=== PATIENT | male | born 1960 | race Caucasian/White ===

== ENCOUNTER 2017-07-24 01:06 | Inpatient (IN) | payer MEDICARE, MEDICAID ==
[~2017-07-24] VITALS: Ht 172.7 cm; Wt 94.7 kg
[2017-07-24] MEDS ORDERED: MORPHINE SULFATE 4 MG/ML, 1ML ONE ×3 (01:51→04:31)
[2017-07-24] MEDS ORDERED: ONDANSETRON 2MG/ML, 2ML ONE (01:51)
[2017-07-24] MEDS ORDERED: ONDANSETRON 2MG/ML, 2ML IVPush ONE (02:00)
[2017-07-24] MEDS: MORPHINE SULFATE 4 MG/ML, 1ML IVPush PRN ×2 (02:03→03:12)
[2017-07-24 02:17] LABS: BASOPHILS # (AUTO) 0.06 x10^3/uL (0-0.1); BASOPHILS % (AUTO) 1 % (0-1); EOSINOPHILS # (AUTO) 0.06 x10^3/uL (0-0.4); EOSINOPHILS % (AUTO) 1 % (1-7); LYMPHOCYTES # (AUTO) 1.11 x10^3/uL (1-3.4); LYMPHOCYTES % (AUTO) 11 % (22-44); MD NO; MEAN CORPUSCULAR HEMOGLOBIN 31.4 pg (27.5-34.5); MEAN CORPUSCULAR HGB CONC 33.8 g/dL (33.2-36.2); MEAN CORPUSCULAR VOLUME 92.7 fL (81-97); MEAN PLATELET VOLUME 7.5 fL (7.4-10.4); MONOCYTES # (AUTO) 0.44 x10^3/uL (0.2-0.8); MONOCYTES % (AUTO) 4 % (2-9); NEUTROPHILS # (AUTO) 8.74 x10^3/uL (1.8-6.8); NEUTROPHILS % (AUTO) 84 % (42-75); PLATELET COUNT 344 x10^3/uL (130-400); RED BLOOD COUNT 4.59 x10^6/uL (4.38-5.82); RED CELL DISTRIBUTION WIDTH 15.2 % (9.4-14.8)
[2017-07-24 02:29] LABS: ALANINE AMINOTRANSFERASE 29 U/L (12-78); ALBUMIN 3.6 g/dL (3.4-5.0); ANION GAP 6 mmol/L (5-15); CALCIUM 8.4 mg/dL (8.5-10.1); CHLORIDE 107 mmol/L (98-107); CREATININE 1.52 mg/dL (0.7-1.3)
[2017-07-24 02:31] LABS: ALKALINE PHOSPHATASE 107 U/L (45-117); BILIRUBIN,TOTAL 0.3 mg/dL (0.2-1.0); TOTAL PROTEIN 7.8 g/dL (6.4-8.2)
[2017-07-24 04:00] LABS: INTERNATIONAL NORMALIZED RATIO 1.01 (0.93-1.1); PROTHROMBIN TIME 10.5 Seconds (9.6-11.5)
[2017-07-24] MEDS ORDERED: SODIUM CHLORIDE 0.9% 1,000ML IVBOLUS ONE (04:00)
[2017-07-24] MEDS ORDERED: SODIUM CHLORIDE FLUSH 10ML SYR IVF ONE (04:00)
[2017-07-24 04:06] LABS: MICROSCOPIC NOT IND
[2017-07-24 04:47] LABS: CULTURE INDICATED? NO
[2017-07-24] MEDS ORDERED: LIDOCAINE 1%, 20ML ONE (05:33)
[2017-07-24] MEDS ORDERED: FLUMAZENIL 0.1 MG/1 ML, 5ML ONE (05:38)
[2017-07-24] MEDS ORDERED: NALOXONE 1 MG/ML, 2ML ONE (05:38)
[2017-07-24] MEDS ORDERED: MIDAZOLAM 1 MG/ML, 5ML ONE ×2 (05:38)
[2017-07-24] MEDS ORDERED: FENTANYL PF 100 MCG/2ML ONE (05:38)
[2017-07-24] MEDS ORDERED: MORPHINE SULFATE 4 MG/ML, 1ML IVPush PRN (06:00)
[2017-07-24] MEDS ORDERED: OMNIPAQUE 350 MG/ML, 100ML BOTTLE ONE (06:16)
[2017-07-24] MEDS ORDERED: THROMBIN 5,000 UNIT VIAL TP ONE ×2 (06:22→06:25)
[2017-07-24] MEDS ORDERED: ACETAMINOPHEN 325 MG TABLET PO PRN (06:30)
[2017-07-24] MEDS ORDERED: POLYETHYLENE GLYCOL 17 GM PACKET PO PRN (06:30)
[2017-07-24] MEDS ORDERED: D5%-0.9% NACL+KCL 20MEQ 1,000 ML IV SCH (06:30)
[2017-07-24] MEDS ORDERED: BISACODYL 10 MG SUPP PR PRN (06:30)
[2017-07-24] MEDS ORDERED: ONDANSETRON 2MG/ML, 2ML IVPush PRN (06:30)
[2017-07-24] MEDS ORDERED: DOCUSATE 100 MG CAPSULE PO PRN (06:30)
[2017-07-24 07:49] VITALS: BP 149/102
[2017-07-24 07:52] LABS: HEMOGLOBIN A1C 5.6 % (4.2-6.3)
[2017-07-24 07:57] LABS: FREE T4 (FREE THYROXINE) 1.14 ng/dL (0.76-1.46); THYROID STIMULATING HORMONE 0.589 mIU/L (0.358-3.740)
[2017-07-24] MEDS: SODIUM CHLORIDE 0.9% 1,000 ML IV SCH ×2 (08:30→20:30)
[2017-07-24] MEDS: NICOTINE 14MG/24 HR PATCH.TD24 TD SCH (08:32)
[2017-07-24] MEDS: OXYcodone IR 5MG TABLET PO PRN ×3 (08:33→20:41)
[2017-07-24 13:42] VITALS: BP 145/89
[2017-07-24] MEDS ORDERED: ASPI-515 PO (18:17)
[2017-07-24 19:16] VITALS: BP 203/125
[2017-07-24] MEDS: hydrALAzine 20 MG/ML, 1ML IVPush PRN (20:35)
[2017-07-24 21:00] VITALS: BP 164/102
[2017-07-24 23:51] LABS: MICROSCOPIC NOT IND
[2017-07-24 23:54] LABS: CULTURE INDICATED? NO
[2017-07-25] VITALS (9 sets, daily range): BP systolic 153–207; BP diastolic 95–124
[2017-07-25] MEDS: OXYcodone IR 5MG TABLET PO PRN ×5 (02:31→23:46)
[2017-07-25] MEDS: SODIUM CHLORIDE 0.9% 1,000 ML IV SCH ×2 (05:00→11:32)
[2017-07-25 06:05] LABS: BASOPHILS # (AUTO) 0.02 x10^3/uL (0-0.1); BASOPHILS % (AUTO) 0 % (0-1); EOSINOPHILS % (AUTO) 0 % (1-7); LYMPHOCYTES # (AUTO) 0.92 x10^3/uL (1-3.4); LYMPHOCYTES % (AUTO) 10 % (22-44); MD NO; MEAN CORPUSCULAR HEMOGLOBIN 31.1 pg (27.5-34.5); MEAN CORPUSCULAR HGB CONC 33.8 g/dL (33.2-36.2); MEAN PLATELET VOLUME 7.4 fL (7.4-10.4); MONOCYTES # (AUTO) 0.54 x10^3/uL (0.2-0.8); MONOCYTES % (AUTO) 6 % (2-9); NEUTROPHILS % (AUTO) 84 % (42-75); PLATELET COUNT 269 x10^3/uL (130-400); RED BLOOD COUNT 4.04 x10^6/uL (4.38-5.82); RED CELL DISTRIBUTION WIDTH 15.5 % (9.4-14.8)
[2017-07-25 06:18] LABS: ALBUMIN 3.5 g/dL (3.4-5.0); ANION GAP 7 mmol/L (5-15); CHLORIDE 106 mmol/L (98-107)
[2017-07-25 06:23] LABS: ALANINE AMINOTRANSFERASE 225 U/L (12-78); ALKALINE PHOSPHATASE 156 U/L (45-117); BILIRUBIN,TOTAL 3.9 mg/dL (0.2-1.0); CHOL/HDL RATIO 3.6; CHOLESTEROL, TOTAL 141 mg/dL (140-239); CREATININE 0.85 mg/dL (0.7-1.3); HDL CHOL % 28 % (26-37); HDL CHOLESTEROL (DIRECT) 39 mg/dL (40-60); LDL CHOLESTEROL,CALCULATED 86 mg/dL (54-169); LDL/HDL RATIO 2.2 (0.5-3.0); TOTAL PROTEIN 7.4 g/dL (6.4-8.2); TRIGLYCERIDES 78 mg/dL (50-200); VLDL CHOLESTEROL 16 mg/dL (0-25)
[2017-07-25] MEDS: LABETALOL 5MG/ML, 20ML IVPush PRN ×4 (08:08→23:45)
[2017-07-25] MEDS: NICOTINE 14MG/24 HR PATCH.TD24 TD SCH (08:09)
[2017-07-25] MEDS: hydrALAzine 20 MG/ML, 1ML IVPush PRN (10:27)
[2017-07-25] MEDS: CEFTRIAXONE 2 GM in DEXTROSE 5% 50 ML IV SCH (13:30)
[2017-07-25] MEDS ORDERED: FUROSEMIDE 20 MG/2 ML IV ONE (13:30)
[2017-07-25] MEDS: LOSARTAN 50MG TABLET PO SCH (13:30)
[2017-07-25] MEDS: METRONIDAZOLE PMX 500MG/100ML 100 ML IV SCH ×2 (14:10→20:52)
[2017-07-26] VITALS (7 sets, daily range): BP systolic 148–195; BP diastolic 89–115
[2017-07-26] MEDS: LABETALOL 5MG/ML, 20ML IVPush PRN ×3 (02:35→17:05)
[2017-07-26] MEDS: OXYcodone IR 5MG TABLET PO PRN ×5 (04:09→21:05)
[2017-07-26] MEDS: hydrALAzine 20 MG/ML, 1ML IVPush PRN (04:15)
[2017-07-26] MEDS: METRONIDAZOLE PMX 500MG/100ML 100 ML IV SCH ×3 (05:08→21:05)
[2017-07-26 05:10] LABS: BASOPHILS % (AUTO) 0 % (0-1); EOSINOPHILS % (AUTO) 0 % (1-7); LYMPHOCYTES # (AUTO) 0.87 x10^3/uL (1-3.4); LYMPHOCYTES % (AUTO) 10 % (22-44); MD NO; MEAN CORPUSCULAR HEMOGLOBIN 31.3 pg (27.5-34.5); MEAN CORPUSCULAR HGB CONC 33.8 g/dL (33.2-36.2); MEAN CORPUSCULAR VOLUME 92.8 fL (81-97); MEAN PLATELET VOLUME 7.7 fL (7.4-10.4); MONOCYTES % (AUTO) 9 % (2-9); NEUTROPHILS # (AUTO) 7.02 x10^3/uL (1.8-6.8); NEUTROPHILS % (AUTO) 81 % (42-75); PLATELET COUNT 247 x10^3/uL (130-400); RED BLOOD COUNT 3.79 x10^6/uL (4.38-5.82); RED CELL DISTRIBUTION WIDTH 15.6 % (9.4-14.8)
[2017-07-26 05:12] LABS: CHLORIDE 102 mmol/L (98-107)
[2017-07-26 05:29] LABS: ALANINE AMINOTRANSFERASE 220 U/L (12-78); ALBUMIN 3.2 g/dL (3.4-5.0); ALKALINE PHOSPHATASE 171 U/L (45-117); ANION GAP 8 mmol/L (5-15); BILIRUBIN,TOTAL 4.8 mg/dL (0.2-1.0); TOTAL PROTEIN 7.2 g/dL (6.4-8.2)
[2017-07-26] MEDS: NICOTINE 14MG/24 HR PATCH.TD24 TD SCH (08:02)
[2017-07-26] MEDS: LOSARTAN 50MG TABLET PO SCH (08:02)
[2017-07-26] MEDS: CEFTRIAXONE 2 GM in DEXTROSE 5% 50 ML IV SCH (13:30)
[2017-07-27] MEDS: OXYcodone IR 5MG TABLET PO PRN ×6 (00:59→21:39)
[2017-07-27 02:00] VITALS: BP 148/84
[2017-07-27] MEDS: METRONIDAZOLE PMX 500MG/100ML 100 ML IV SCH ×3 (04:46→20:45)
[2017-07-27 05:36] LABS: BASOPHILS # (AUTO) 0.01 x10^3/uL (0-0.1); BASOPHILS % (AUTO) 0 % (0-1); EOSINOPHILS % (AUTO) 0 % (1-7); LYMPHOCYTES % (AUTO) 11 % (22-44); MD NO; MEAN CORPUSCULAR HEMOGLOBIN 31.3 pg (27.5-34.5); MEAN CORPUSCULAR HGB CONC 33.9 g/dL (33.2-36.2); MEAN CORPUSCULAR VOLUME 92.4 fL (81-97); MEAN PLATELET VOLUME 7.9 fL (7.4-10.4); MONOCYTES # (AUTO) 0.85 x10^3/uL (0.2-0.8); MONOCYTES % (AUTO) 11 % (2-9); NEUTROPHILS # (AUTO) 6.31 x10^3/uL (1.8-6.8); NEUTROPHILS % (AUTO) 78 % (42-75); PLATELET COUNT 220 x10^3/uL (130-400); RED BLOOD COUNT 3.61 x10^6/uL (4.38-5.82); RED CELL DISTRIBUTION WIDTH 16.1 % (9.4-14.8)
[2017-07-27 05:37] LABS: ALBUMIN 2.9 g/dL (3.4-5.0); ANION GAP 8 mmol/L (5-15); CALCIUM 7.8 mg/dL (8.5-10.1); CHLORIDE 100 mmol/L (98-107)
[2017-07-27 05:49] LABS: ALANINE AMINOTRANSFERASE 229 U/L (12-78); ALKALINE PHOSPHATASE 173 U/L (45-117); BILIRUBIN,TOTAL 4.7 mg/dL (0.2-1.0); CREATININE 0.83 mg/dL (0.7-1.3); TOTAL PROTEIN 6.5 g/dL (6.4-8.2)
[2017-07-27 08:23] VITALS: BP 167/95
[2017-07-27] MEDS: NICOTINE 14MG/24 HR PATCH.TD24 TD SCH (08:37)
[2017-07-27] MEDS: LOSARTAN 50MG TABLET PO SCH (08:37)
[2017-07-27] MEDS ORDERED: POTASSIUM PHOSPHATE 22 MEQ in SODIUM CHLORIDE 0.9% 500 ML IV ONE (10:30)
[2017-07-27] MEDS: CEFTRIAXONE 2 GM in DEXTROSE 5% 50 ML IV SCH (13:57)
[2017-07-27 14:02] VITALS: BP 183/106
[2017-07-27] MEDS: LABETALOL 5MG/ML, 20ML IVPush PRN (14:24)
[2017-07-27 15:40] VITALS: BP 163/99
[2017-07-27 20:30] VITALS: BP 125/83
[2017-07-28] MEDS: OXYcodone IR 5MG TABLET PO PRN ×2 (01:40→22:21)
[2017-07-28 02:06] VITALS: BP 176/110
[2017-07-28] MEDS: LABETALOL 5MG/ML, 20ML IVPush PRN ×2 (02:12→19:22)
[2017-07-28] MEDS: METRONIDAZOLE PMX 500MG/100ML 100 ML IV SCH ×3 (04:43→21:49)
[2017-07-28 05:04] LABS: BASOPHILS % (AUTO) 0 % (0-1); EOSINOPHILS % (AUTO) 0 % (1-7); LYMPHOCYTES # (AUTO) 0.74 x10^3/uL (1-3.4); LYMPHOCYTES % (AUTO) 10 % (22-44); MD NO; MEAN CORPUSCULAR HEMOGLOBIN 31.6 pg (27.5-34.5); MEAN CORPUSCULAR HGB CONC 34.2 g/dL (33.2-36.2); MEAN CORPUSCULAR VOLUME 92.2 fL (81-97); MONOCYTES # (AUTO) 1.13 x10^3/uL (0.2-0.8); MONOCYTES % (AUTO) 15 % (2-9); NEUTROPHILS # (AUTO) 5.82 x10^3/uL (1.8-6.8); NEUTROPHILS % (AUTO) 76 % (42-75); PLATELET COUNT 216 x10^3/uL (130-400); RED BLOOD COUNT 3.62 x10^6/uL (4.38-5.82); RED CELL DISTRIBUTION WIDTH 15.4 % (9.4-14.8)
[2017-07-28 05:15] LABS: ALBUMIN 2.7 g/dL (3.4-5.0); ANION GAP 9 mmol/L (5-15); CALCIUM 7.6 mg/dL (8.5-10.1); CHLORIDE 99 mmol/L (98-107)
[2017-07-28 05:19] LABS: ALANINE AMINOTRANSFERASE 179 U/L (12-78); ALKALINE PHOSPHATASE 179 U/L (45-117); BILIRUBIN,TOTAL 4.9 mg/dL (0.2-1.0); CREATININE 0.84 mg/dL (0.7-1.3); TOTAL PROTEIN 6.5 g/dL (6.4-8.2)
[2017-07-28] MEDS: morphine SULFATE 10 MG/ML, 1ML IVPush PRN ×3 (07:14→13:50)
[2017-07-28 07:19] VITALS: BP 164/99
[2017-07-28] MEDS: LOSARTAN 50MG TABLET PO SCH (08:26)
[2017-07-28] MEDS: NICOTINE 14MG/24 HR PATCH.TD24 TD SCH (08:26)
[2017-07-28] MEDS ORDERED: SUCCINYLCHOLINE 20 MG/ML, 10ML ONE (10:29)
[2017-07-28] MEDS ORDERED: ONDANSETRON 2MG/ML, 2ML ONE (10:29)
[2017-07-28] MEDS ORDERED: DEXAMETHASONE 4 MG/ML, 1ML ONE (10:29)
[2017-07-28] MEDS ORDERED: PROPOFOL 10 MG/ML, 20ML ONE (10:29)
[2017-07-28] MEDS ORDERED: ROCURONIUM 10 MG/ML,10ML ONE (10:29)
[2017-07-28] MEDS ORDERED: GLUCAGON 1 MG ONE (10:30)
[2017-07-28] MEDS ORDERED: POTASSIUM PHOS 4.4 MEQ/ML IV ONE (10:30)
[2017-07-28] MEDS ORDERED: POTASSIUM PHOSPHATE 22 MEQ in SODIUM CHLORIDE 0.9% 500 ML IV ONE (11:00)
[2017-07-28 13:32] VITALS: BP 172/112
[2017-07-28] MEDS: hydrALAzine 20 MG/ML, 1ML IVPush PRN (13:41)
[2017-07-28] MEDS: CEFTRIAXONE 2 GM in DEXTROSE 5% 50 ML IV SCH (14:17)
[2017-07-28] MEDS ORDERED: FENTANYL PF 100 MCG/2ML ONE (16:13)
[2017-07-28] MEDS ORDERED: MIDAZOLAM 1 MG/ML, 2ML ONE (16:13)
[2017-07-28] MEDS ORDERED: OMNIPAQUE 350 MG/ML, 50 ML BOTTLE ONE (17:27)
[2017-07-28] MEDS ORDERED: ONDANSETRON 2MG/ML, 2ML IVPush PRN (17:30)
[2017-07-28] MEDS ORDERED: HYDROcodone/APAP 7.5-325MG/15ML UDC PO PRN (17:30)
[2017-07-28] MEDS ORDERED: hydrALAzine 20 MG/ML, 1ML IV PRN (17:30)
[2017-07-28] MEDS ORDERED: METOPROLOL 1 MG/ML, 5ML IV PRN (17:30)
[2017-07-28] MEDS ORDERED: DIAZEPAM 5 MG/ML, 2ML IVPush PRN (17:30)
[2017-07-28] MEDS ORDERED: LABETALOL 5MG/ML, 20ML IV PRN (17:30)
[2017-07-28] MEDS ORDERED: PROMETHAZINE 25 MG/ML, 1ML IV PRN (17:30)
[2017-07-28] MEDS ORDERED: MEPERIDINE/PF 25MG/0.5ML IVPush PRN (17:30)
[2017-07-28] MEDS ORDERED: EPHEDRINE 50 MG/ML, 1ML IVPush PRN (17:30)
[2017-07-28] MEDS ORDERED: ACETAMINOPHEN 325 MG TABLET PO PRN (17:30)
[2017-07-28] MEDS ORDERED: morphine SULFATE 10 MG/ML, 1ML IV PRN (17:30)
[2017-07-28] MEDS ORDERED: FENTANYL PF 100 MCG/2ML IV PRN (17:30)
[2017-07-28] MEDS ORDERED: OXYcodone 5 MG/5 ML ORAL.SOL UDC PO PRN (17:30)
[2017-07-28] MEDS ORDERED: PROMETHAZINE 12.5 MG SUPP PR PRN (17:30)
[2017-07-28] MEDS ORDERED: ALBUTEROL SULFATE 2.5 MG/3 ML NPPB PRN (17:30)
[2017-07-28] MEDS ORDERED: MIDAZOLAM 1 MG/ML, 2ML IV PRN (17:30)
[2017-07-28] MEDS ORDERED: INDOMETHACIN 50 MG SUPP.RECT ONE (17:31)
[2017-07-28] MEDS ORDERED: INDOMETHACIN 50 MG SUPP.RECT PR ONE (18:00)
[2017-07-28 18:10] VITALS: BP 140/75
[2017-07-28 19:10] VITALS: BP 149/102
[2017-07-28 23:30] VITALS: BP 120/46
[2017-07-29] MEDS: OXYcodone IR 5MG TABLET PO PRN ×3 (02:22→10:43)
[2017-07-29] MEDS ORDERED: FLU VACC QS2017-18 (36MOS+) UP/PF 0.5 ML IM-VACC ONE (02:30)
[2017-07-29 03:25] VITALS: BP 124/84
[2017-07-29] MEDS: METRONIDAZOLE PMX 500MG/100ML 100 ML IV SCH ×2 (05:22→12:46)
[2017-07-29 05:50] LABS: ALBUMIN 2.6 g/dL (3.4-5.0); ANION GAP 5 mmol/L (5-15); CHLORIDE 102 mmol/L (98-107)
[2017-07-29 05:53] LABS: ALANINE AMINOTRANSFERASE 135 U/L (12-78); ALKALINE PHOSPHATASE 173 U/L (45-117); BILIRUBIN,TOTAL 1.9 mg/dL (0.2-1.0); CREATININE 0.83 mg/dL (0.7-1.3); TOTAL PROTEIN 6.6 g/dL (6.4-8.2)
[2017-07-29 08:17] VITALS: BP 146/84
[2017-07-29] MEDS: LOSARTAN 50MG TABLET PO SCH (08:53)
[2017-07-29] MEDS: NICOTINE 14MG/24 HR PATCH.TD24 TD SCH (08:54)
[2017-07-29] MEDS ORDERED: LOSA50TA2 PO (10:22)
[2017-07-29] MEDS ORDERED: METR500T PO (10:22)
[2017-07-29] MEDS ORDERED: CEFD300C37 PO (10:22)
== END 2017-07-29 14:15 | disposition home or self-care (01) | DRG 444 ==
LOC: ED 02:01 → EDIP 06:21 → 4NOR 07:36 → DCLOUNGE 07-29 13:37
PROVIDERS: ADMIT Internal Medicine; ATTEND Family Medicine
PROC: BF101ZZ Fluoroscopy of Bile Ducts using Low Osmolar Contrast (ICD-10-PCS; 2017-07-28)
PROC: 3E023GC Introduction of Other Therapeutic Substance into Muscle, Percutaneous Approach (ICD-10-PCS; 2017-07-28)
PROC: 0FC98ZZ Extirpation of Matter from Common Bile Duct, Via Natural or Artificial Opening Endoscopic (ICD-10-PCS; principal; 2017-07-28 15:00)
DX: K80.50 Calculus of bile duct without cholangitis or cholecystitis without obstruction (principal); N17.0 Acute kidney failure with tubular necrosis; J96.00 Acute respiratory failure, unspecified whether with hypoxia or hypercapnia; D62 Acute posthemorrhagic anemia; E87.1 Hypo-osmolality and hyponatremia; S30.1XXA Contusion of abdominal wall, initial encounter; R58 Hemorrhage, not elsewhere classified; D72.823 Leukemoid reaction; F17.210 Nicotine dependence, cigarettes, uncomplicated; I10 Essential (primary) hypertension; K57.10 Diverticulosis of small intestine without perforation or abscess without bleeding; M79.81 Nontraumatic hematoma of soft tissue; M21.372 Foot drop, left foot; Z90.49 Acquired absence of other specified parts of digestive tract; Z88.0 Allergy status to penicillin; Z23 Encounter for immunization
CPT/HCPCS: 36415; 74177; 74181; 74328; 76942; 80053; 80061; 81003; 83036; 83690; 83735; 84100; 84439; 84443; 85014; 85018; 85025; 85610; 85730; 86677; 86850; 86900; 87040; 90686; 96361; 96374; 96375; 96376; J1100; J2250; J2405; J2704; J3010; J3490; Q9967; C1769; J0330; J0360; J1610; J1940; J2270; J2310; J7030; J7040

== ENCOUNTER 2018-03-07 20:46 | Emergency (ER) | payer MEDICAID, MEDICARE, OTHER ==
[~2018-03-07] VITALS: Ht 177.8 cm; Wt 101.0 kg
[~2018-03-07 20:46] MED LIST: ASPI-515 PO; CEFD300C37 PO; LOSA50TA2 PO; METR500T PO
[2018-03-08 03:00] VITALS: BP 139/79
== END 2018-03-08 03:56 | disposition home or self-care (01) ==
LOC: ED 22:51
DX: F10.120 Alcohol abuse with intoxication, uncomplicated (principal); I10 Essential (primary) hypertension; F17.200 Nicotine dependence, unspecified, uncomplicated
CPT/HCPCS: 99283

== ENCOUNTER 2019-08-23 01:35 | Emergency (ER) | payer MEDICARE ==
[~2019-08-23] VITALS: Ht 172.7 cm; Wt 72.0 kg
--- NOTE | 2019-08-23 02:02 | NUR ---
PT UP WALKING IN ROOM, CALL LIGHT WITHIN REACH, DENIES NEEDS AT THIS TIME. AWAITING LAB RESULTS
[2019-08-23 02:11] LABS: BASOPHILS # (AUTO) 0.03 x10^3/uL (0-0.1); BASOPHILS % (AUTO) 0 % (0-1); EOSINOPHILS # (AUTO) 0.16 x10^3/uL (0-0.4); EOSINOPHILS % (AUTO) 2 % (1-7); LYMPHOCYTES # (AUTO) 1.18 x10^3/uL (1-3.4); LYMPHOCYTES % (AUTO) 15 % (22-44); MD NO; MEAN CORPUSCULAR HEMOGLOBIN 30.8 pg (27.5-34.5); MEAN CORPUSCULAR VOLUME 93.4 fL (81-97); MEAN PLATELET VOLUME 7.1 fL (7.4-10.4); MONOCYTES # (AUTO) 0.68 x10^3/uL (0.2-0.8); MONOCYTES % (AUTO) 9 % (2-9); NEUTROPHILS # (AUTO) 5.88 x10^3/uL (1.8-6.8); NEUTROPHILS % (AUTO) 74 % (42-75); PLATELET COUNT 304 x10^3/uL (130-400); RED BLOOD COUNT 4.66 x10^6/uL (4.38-5.82); RED CELL DISTRIBUTION WIDTH 16.1 % (9.4-14.8)
[2019-08-23 02:18] LABS: ALANINE AMINOTRANSFERASE 67 U/L (12-78); ALBUMIN 3.7 g/dL (3.4-5.0); ANION GAP 3 mmol/L (5-15); CALCIUM 8.8 mg/dL (8.5-10.1); CHLORIDE 105 mmol/L (98-107); CREATININE 0.91 mg/dL (0.7-1.3)
[2019-08-23 02:20] LABS: ALKALINE PHOSPHATASE 103 U/L (45-117); BILIRUBIN,TOTAL 0.4 mg/dL (0.2-1.0)
[2019-08-23 02:22] VITALS: BP 117/104
--- NOTE | 2019-08-23 02:23 | NUR ---
pt sitting up on gurney, denies needs, call lightt within reach. awaiting lab results
--- NOTE | 2019-08-23 02:42 | NUR ---
provided pt with pair pants from hospital closet
== END 2019-08-23 02:48 | disposition home or self-care (01) ==
LOC: ED 01:57
DX: R19.7 Diarrhea, unspecified (principal); F17.200 Nicotine dependence, unspecified, uncomplicated; I10 Essential (primary) hypertension; Z90.49 Acquired absence of other specified parts of digestive tract
CPT/HCPCS: 36415; 80053; 85025; 99283

== ENCOUNTER 2019-12-18 03:17 | Emergency (ER) | payer MEDICARE ==
[~2019-12-18] VITALS: Ht 172.7 cm; Wt 65.4 kg
[2019-12-18 03:22] VITALS: BP 147/95
[2019-12-18] MEDS ORDERED: BACITRACIN OINT 500U/GM, 15 GM TP ONE (03:40)
[2019-12-18] MEDS ORDERED: PERMETHRIN CRM 5%, 60GM ONE (03:58)
[2019-12-18] MEDS ORDERED: CEPHALEXIN 500 MG CAPSULE ONE (03:58)
[2019-12-18] MEDS ORDERED: SULFAMETH./TRIMETHOPRIM DS 800MG/160MG TABLET ONE (03:58)
[2019-12-18] MEDS ORDERED: PERMETHRIN CRM 5%, 60GM TP SCH (04:00)
[2019-12-18] MEDS ORDERED: CEPHALEXIN 500 MG CAPSULE PO ONE (04:00)
[2019-12-18] MEDS ORDERED: SULFAMETH./TRIMETHOPRIM DS 800MG/160MG TABLET PO ONE (04:00)
== END 2019-12-18 04:19 | disposition home or self-care (01) ==
LOC: ED 03:45
DX: L03.011 Cellulitis of right finger (principal); B86 Scabies; F17.210 Nicotine dependence, cigarettes, uncomplicated; I10 Essential (primary) hypertension; Z90.49 Acquired absence of other specified parts of digestive tract
CPT/HCPCS: 99284; 99406

== ENCOUNTER 2020-01-20 14:51 | Emergency (ER) | payer MEDICARE ==
[~2020-01-20] VITALS: Ht 172.7 cm; Wt 64.5 kg
--- NOTE | 2020-01-20 14:55 | NUR ---
NO ANSWER FROM LOBBY.
--- NOTE | 2020-01-20 16:07 | NUR ---
JEWELRY JOBBER: PT TO ROOM FROM LOBBY
[2020-01-20 16:56] LABS: BASOPHILS # (AUTO) 0.04 x10^3/uL (0-0.1); BASOPHILS % (AUTO) 1 % (0-1); EOSINOPHILS # (AUTO) 0.06 x10^3/uL (0-0.4); EOSINOPHILS % (AUTO) 1 % (1-7); LYMPHOCYTES # (AUTO) 1.24 x10^3/uL (1-3.4); LYMPHOCYTES % (AUTO) 17 % (22-44); MD NO; MEAN CORPUSCULAR HEMOGLOBIN 30.1 pg (27.5-34.5); MEAN CORPUSCULAR VOLUME 91.2 fL (81-97); MEAN PLATELET VOLUME 6.2 fL (7.4-10.4); MONOCYTES # (AUTO) 0.58 x10^3/uL (0.2-0.8); MONOCYTES % (AUTO) 8 % (2-9); NEUTROPHILS # (AUTO) 5.45 x10^3/uL (1.8-6.8); NEUTROPHILS % (AUTO) 74 % (42-75); PLATELET COUNT 351 x10^3/uL (130-400); RED BLOOD COUNT 4.35 x10^6/uL (4.38-5.82); RED CELL DISTRIBUTION WIDTH 14.2 % (9.4-14.8)
[2020-01-20 17:00] LABS: ANION GAP 5 mmol/L (5-15); CALCIUM 8.6 mg/dL (8.5-10.1); CHLORIDE 107 mmol/L (98-107); CREATININE 0.91 mg/dL (0.7-1.3)
[2020-01-20 18:00] VITALS: BP 132/74
== END 2020-01-20 18:02 | disposition home or self-care (01) ==
LOC: ED 17:22
DX: L03.113 Cellulitis of right upper limb (principal); L03.114 Cellulitis of left upper limb; I10 Essential (primary) hypertension; F17.200 Nicotine dependence, unspecified, uncomplicated; Z90.49 Acquired absence of other specified parts of digestive tract
CPT/HCPCS: 36415; 80048; 82040; 85025; 87040; 87070; 87147; 87181; 87205; 99283

== ENCOUNTER 2020-03-02 23:30 | Inpatient (IN) | payer MEDICARE ==
[~2020-03-02] VITALS: Ht 172.7 cm; Wt 70.4 kg
--- NOTE | 2020-03-02 23:52 | NUR ---
RA O2 SAT DROPPED TO 88%, PLACED BACK ON 2L UP TO 94%. PT WITH DIFFICULTY SPEAKING FULL COMPLETE SENTENCES. RR 28. DR KERR AT BEDSIDE.
[2020-03-03] MEDS ORDERED: SODIUM CHLORIDE FLUSH 10ML SYR IVF ONE
[2020-03-03] MEDS ORDERED: KETOROLAC 30 MG/1 ML IVPush ONE
[2020-03-03] MEDS ORDERED: MORPHINE SULFATE 4 MG/ML, 1ML ONE ×2 (00:07→01:44)
[2020-03-03] MEDS ORDERED: KETOROLAC 30 MG/1 ML ONE (00:08)
[2020-03-03] MEDS: MORPHINE SULFATE 4 MG/ML, 1ML IVPush PRN ×2 (00:10→01:50)
--- NOTE | 2020-03-03 00:16 | NUR ---
2 SETS BC DRAWN AND SENT, PT MEDICATED PER ORDER. WILL CONTINUE TO MONITOR.
[2020-03-03 00:27] LABS: BASOPHILS % (AUTO) 1 % (0-1); EOSINOPHILS % (AUTO) 1 % (1-7); LYMPHOCYTES % (AUTO) 15 % (22-44); MEAN CORPUSCULAR HEMOGLOBIN 29.7 pg (27.5-34.5); MEAN CORPUSCULAR HGB CONC 32.5 g/dL (33.2-36.2); MEAN PLATELET VOLUME 6.9 fL (7.4-10.4); MONOCYTES % (AUTO) 8 % (2-9); NEUTROPHILS % (AUTO) 75 % (42-75); PLATELET COUNT 254 x10^3/uL (130-400); RED BLOOD COUNT 3.91 x10^6/uL (4.38-5.82); RED CELL DISTRIBUTION WIDTH 15.8 % (9.4-14.8)
[2020-03-03 00:29] LABS: MD NO
[2020-03-03 00:30] LABS: ALANINE AMINOTRANSFERASE 88 U/L (12-78); CALCIUM 8.5 mg/dL (8.5-10.1)
[2020-03-03 00:35] LABS: ALKALINE PHOSPHATASE 137 U/L (45-117); BILIRUBIN,TOTAL 0.2 mg/dL (0.2-1.0); CREATININE 1.02 mg/dL (0.7-1.3); TOTAL PROTEIN 7.4 g/dL (6.4-8.2); TROPONIN I 0.025 ng/mL (0.000-0.045)
--- NOTE | 2020-03-03 00:36 | NUR ---
PT REMAINS WITH STABLE VS. REPORTS FEELING LESS PAIN AFTER MEDS. PCXR DONE. ON MONITOR NSR NO ECTOPY.
[2020-03-03 00:50] LABS: ANION GAP 5 mmol/L (5-15); CHLORIDE 105 mmol/L (98-107)
[2020-03-03] MEDS ORDERED: SODIUM CHLORIDE 0.9% 1,000ML IVBOLUS ONE (01:00)
[2020-03-03] MEDS ORDERED: AZITHROMYCIN 500 MG in SODIUM CHLORIDE 0.9% 250 ML IVPB ONE (01:00)
[2020-03-03] MEDS ORDERED: CEFTRIAXONE PMX 1GM/50ML 50 ML IVPB ONE (01:00)
[2020-03-03] MEDS ORDERED: CEFTRIAXONE PMX 1GM/50ML 50 ML ONE (01:19)
--- NOTE | 2020-03-03 01:23 | NUR ---
IVF WIDE OPEN, PT OFF TO CTA. WILL START ABX UPON RETURN.
[2020-03-03] MEDS ORDERED: OMNIPAQUE 350 MG/ML, 75ML BOTTLE ONE (01:28)
[2020-03-03] MEDS ORDERED: GUAIFENESIN/DM 200-20MG, 10ML UDC PO PRN (02:00)
[2020-03-03] MEDS ORDERED: morphine SULFATE 10 MG/ML, 1ML IVPush PRN (02:00)
[2020-03-03] MEDS ORDERED: PHARMACY MAY ADJ FOR RENAL FX MC PRN (02:00)
[2020-03-03] MEDS ORDERED: METHOCARBAMOL 500 MG TABLET PO PRN (02:00)
[2020-03-03] MEDS ORDERED: ACETAMINOPHEN 325 MG TABLET PO PRN (02:00)
[2020-03-03] MEDS ORDERED: LACTATED RINGERS 1,000 ML IV SCH (02:00)
[2020-03-03] MEDS ORDERED: ONDANSETRON 2MG/ML, 2ML IVPush PRN (02:00)
[2020-03-03] MEDS ORDERED: DOCUSATE 100 MG CAPSULE PO PRN (02:00)
[2020-03-03] MEDS ORDERED: ENOXAPARIN 40 MG/0.4 ML SQ SCH (02:00)
[2020-03-03] MEDS ORDERED: METHOCARBAMOL 750 MG TABLET ONE (02:35)
[2020-03-03] MEDS ORDERED: HYDROcodone/APAP 5/325 TABLET ONE (02:35)
[2020-03-03] MEDS ORDERED: ENOXAPARIN 40 MG/0.4 ML ONE (02:36)
[2020-03-03] MEDS: HYDROcodone/APAP 5/325 TABLET PO PRN ×3 (02:40→17:27)
[2020-03-03] MEDS: ALBUTEROL/IPRATROPIUM 2.5MG/0.5MG, 3 ML NEB SCH ×2 (02:44→08:00)
[2020-03-03] MEDS ORDERED: ALBUTEROL/IPRATROPIUM 2.5MG/0.5MG, 3 ML ONE (02:48)
--- NOTE | 2020-03-03 02:49 | NUR ---
pt with pain 8/10 to back, pain when breathes. medicated per prn order with 500 robaxin, norco x1. hhn initiated. will start next abx after zitho infused. vss. will continue to monitor.
--- NOTE | 2020-03-03 03:34 | NUR ---
Per pharmacist; please verify hospitalist indeed wants vibramycin iv. Verified with dr suarez, he wants pt to have vibramycin.
[2020-03-03] MEDS: DOXYCYCLINE 100 MG in DEXTROSE 5% 250 ML IV SCH ×2 (03:47→13:51)
--- NOTE | 2020-03-03 05:13 | NUR ---
CHICKEN BROTH AND TEA GIVEN TO PT. VSS.
--- NOTE | 2020-03-03 06:27 | NUR ---
UPDATED VS, PT REMAINS WITH O2 DEMAND 4L TO STAY AT 93%. TKO LR. NO FEVER. NO CP. SINUS TO SINUS TACH NO ECTOPY NOTED.
--- NOTE | 2020-03-03 06:55 | NUR ---
REPROT TO DENA, RN
--- NOTE | 2020-03-03 07:20 | NUR ---
Report given to BOBBY Snow.
[2020-03-03 08:43] VITALS: BP 156/95
[2020-03-03] MEDS: ASCORBIC ACID 500 MG TABLET PO SCH ×2 (09:46→20:22)
[2020-03-03] MEDS: FAMOTIDINE 20 MG TABLET PO SCH ×2 (09:48→20:21)
[2020-03-03] MEDS: ZINC SULFATE 220 MG CAPSULE PO SCH (09:49)
[2020-03-03 13:20] VITALS: BP 146/98
[2020-03-03 19:08] VITALS: BP 135/83
[2020-03-03] MEDS: ENOXAPARIN 80 MG/0.8 ML SQ SCH (20:21)
[2020-03-03] MEDS: ZOLPIDEM 5MG TABLET PO PRN (20:31)
[2020-03-03] MEDS ORDERED: AZITHROMYCIN 500 MG TABLET PO SCH (21:00)
[2020-03-04 01:07] VITALS: BP 151/88
[2020-03-04] MEDS: ALBUTEROL-IPRATROPIUM MDI INH INH SCH ×4 (02:13→20:04)
[2020-03-04] MEDS: DOXYCYCLINE 100 MG in DEXTROSE 5% 250 ML IV SCH ×2 (02:13→14:07)
[2020-03-04] MEDS: HYDROcodone/APAP 5/325 TABLET PO PRN ×3 (04:48→20:56)
[2020-03-04 05:19] LABS: BASOPHILS % (AUTO) 1 % (0-1); EOSINOPHILS % (AUTO) 0 % (1-7); LYMPHOCYTES % (AUTO) 27 % (22-44); MEAN CORPUSCULAR HEMOGLOBIN 29.9 pg (27.5-34.5); MEAN CORPUSCULAR HGB CONC 32.6 g/dL (33.2-36.2); MEAN PLATELET VOLUME 7.2 fL (7.4-10.4); MONOCYTES % (AUTO) 5 % (2-9); NEUTROPHILS % (AUTO) 67 % (42-75); PLATELET COUNT 260 x10^3/uL (130-400); RED BLOOD COUNT 3.78 x10^6/uL (4.38-5.82); RED CELL DISTRIBUTION WIDTH 15.7 % (9.4-14.8)
[2020-03-04 05:22] LABS: CHLORIDE 108 mmol/L (98-107)
[2020-03-04 05:48] LABS: MD NO
[2020-03-04 05:50] LABS: ANION GAP 6 mmol/L (5-15); CALCIUM 8.3 mg/dL (8.5-10.1); CREATININE 0.98 mg/dL (0.7-1.3)
[2020-03-04 08:13] VITALS: BP 146/101
[2020-03-04] MEDS: ASCORBIC ACID 500 MG TABLET PO SCH ×2 (08:51→20:36)
[2020-03-04] MEDS: ZINC SULFATE 220 MG CAPSULE PO SCH (08:51)
[2020-03-04] MEDS: FAMOTIDINE 20 MG TABLET PO SCH ×2 (08:52→20:36)
[2020-03-04] MEDS: ENOXAPARIN 80 MG/0.8 ML SQ SCH (08:54)
[2020-03-04 11:27] VITALS: BP 161/115
[2020-03-04 13:43] VITALS: BP 142/85
[2020-03-04 19:47] VITALS: BP 156/98
[2020-03-04] MEDS: GUAIFENESIN ER 600 MG TABLET PO SCH (20:36)
[2020-03-04] MEDS: ZOLPIDEM 5MG TABLET PO PRN (20:55)
[2020-03-04 22:30] VITALS: BP 161/105
[2020-03-05 00:13] VITALS: BP 159/95
[2020-03-05] MEDS: ALBUTEROL-IPRATROPIUM MDI INH INH SCH ×4 (02:16→19:57)
[2020-03-05] MEDS: DOXYCYCLINE 100 MG in DEXTROSE 5% 250 ML IV SCH ×2 (02:30→13:57)
[2020-03-05] MEDS: HYDROcodone/APAP 5/325 TABLET PO PRN ×3 (05:43→20:00)
[2020-03-05 06:46] VITALS: BP 156/92
[2020-03-05] MEDS: GUAIFENESIN ER 600 MG TABLET PO SCH ×2 (08:19→19:57)
[2020-03-05] MEDS: FAMOTIDINE 20 MG TABLET PO SCH ×2 (08:20→19:57)
[2020-03-05] MEDS: ENALAPRILAT 1.25 MG/ML, 2ML IVPush PRN ×2 (11:53→12:21)
[2020-03-05 12:11] VITALS: BP 166/121
[2020-03-05 12:16] VITALS: BP 173/122
[2020-03-05 12:53] VITALS: BP 160/73
[2020-03-05 13:43] LABS: ANION GAP 5 mmol/L (5-15); CALCIUM 8.3 mg/dL (8.5-10.1); CHLORIDE 105 mmol/L (98-107); CREATININE 1.07 mg/dL (0.7-1.3)
[2020-03-05] MEDS: ENOXAPARIN 40 MG/0.4 ML SQ SCH (16:30)
[2020-03-05] MEDS: ZOLPIDEM 5MG TABLET PO PRN (20:00)
[2020-03-05 20:01] VITALS: BP 159/89
[2020-03-06 02:00] VITALS: BP 161/100
[2020-03-06] MEDS: DOXYCYCLINE 100 MG in DEXTROSE 5% 250 ML IV SCH ×2 (02:20→13:18)
[2020-03-06] MEDS: ALBUTEROL-IPRATROPIUM MDI INH INH SCH ×4 (03:00→21:00)
[2020-03-06] MEDS: HYDROcodone/APAP 5/325 TABLET PO PRN ×3 (05:25→20:02)
[2020-03-06 05:49] LABS: BASOPHILS % (AUTO) 1 % (0-1); EOSINOPHILS % (AUTO) 0 % (1-7); LYMPHOCYTES % (AUTO) 22 % (22-44); MEAN CORPUSCULAR HEMOGLOBIN 30.1 pg (27.5-34.5); MEAN CORPUSCULAR HGB CONC 32.7 g/dL (33.2-36.2); MEAN PLATELET VOLUME 7.3 fL (7.4-10.4); MONOCYTES % (AUTO) 7 % (2-9); NEUTROPHILS % (AUTO) 70 % (42-75); PLATELET COUNT 294 x10^3/uL (130-400); RED BLOOD COUNT 3.84 x10^6/uL (4.38-5.82); RED CELL DISTRIBUTION WIDTH 15.7 % (9.4-14.8)
[2020-03-06 06:07] LABS: MD NO
[2020-03-06 06:10] LABS: ALBUMIN 2.8 g/dL (3.4-5.0); ANION GAP 6 mmol/L (5-15); CALCIUM 8.7 mg/dL (8.5-10.1); CHLORIDE 109 mmol/L (98-107)
[2020-03-06 06:13] LABS: ALANINE AMINOTRANSFERASE 51 U/L (12-78); ALKALINE PHOSPHATASE 107 U/L (45-117); BILIRUBIN,TOTAL 0.4 mg/dL (0.2-1.0); CREATININE 0.92 mg/dL (0.7-1.3); TOTAL PROTEIN 7.1 g/dL (6.4-8.2)
[2020-03-06] MEDS: GUAIFENESIN ER 600 MG TABLET PO SCH ×2 (08:43→20:02)
[2020-03-06] MEDS: FAMOTIDINE 20 MG TABLET PO SCH ×2 (08:43→20:02)
[2020-03-06] MEDS: SPIRONOLACTONE 25 MG TABLET PO SCH (08:43)
[2020-03-06] MEDS: FUROSEMIDE 20 MG TABLET PO SCH (08:46)
[2020-03-06] MEDS: CARVEDILOL 3.125 MG TABLET PO SCH ×2 (08:53→16:54)
[2020-03-06] MEDS ORDERED: LISINOPRIL 5 MG TABLET PO SCH (09:00)
[2020-03-06 14:00] VITALS: BP 165/109
[2020-03-06] MEDS: ENOXAPARIN 40 MG/0.4 ML SQ SCH (16:55)
[2020-03-06 19:58] VITALS: BP 157/87
[2020-03-06] MEDS: ZOLPIDEM 5MG TABLET PO PRN (20:02)
[2020-03-07] MEDS: DOXYCYCLINE 100 MG in DEXTROSE 5% 250 ML IV SCH (02:03)
[2020-03-07 02:04] VITALS: BP 163/123
[2020-03-07] MEDS: ALBUTEROL-IPRATROPIUM MDI INH INH SCH ×3 (02:10→14:40)
[2020-03-07] MEDS: ENALAPRILAT 1.25 MG/ML, 2ML IVPush PRN (02:17)
[2020-03-07] MEDS: HYDROcodone/APAP 5/325 TABLET PO PRN ×2 (04:01→11:41)
[2020-03-07 04:06] VITALS: BP 166/106
[2020-03-07] MEDS: CARVEDILOL 3.125 MG TABLET PO SCH (05:40)
[2020-03-07 07:22] VITALS: BP 152/92
[2020-03-07] MEDS ORDERED: LISINOPRIL 10 MG TABLET PO SCH (09:00)
[2020-03-07] MEDS: SPIRONOLACTONE 25 MG TABLET PO SCH (09:15)
[2020-03-07] MEDS: FAMOTIDINE 20 MG TABLET PO SCH (09:15)
[2020-03-07] MEDS: GUAIFENESIN ER 600 MG TABLET PO SCH (09:15)
[2020-03-07] MEDS: FUROSEMIDE 20 MG TABLET PO SCH (09:24)
[2020-03-07 12:17] VITALS: BP 158/98
[2020-03-07] MEDS ORDERED: PRED5TAB PO (12:23)
[2020-03-07] MEDS ORDERED: LISI-167 PO (12:23)
[2020-03-07] MEDS ORDERED: IPRA4AER INH (12:23)
[2020-03-07] MEDS ORDERED: SPIR25TA PO (12:23)
[2020-03-07] MEDS ORDERED: FURO20TA3 PO (12:23)
[2020-03-07] MEDS ORDERED: CARV3.1212 PO (12:23)
== END 2020-03-07 16:05 | disposition home or self-care (01) | DRG 291 ==
LOC: ED 23:52 → EDIP 03-03 01:42 → 4EST 03-03 07:40 → 4WST 03-04 22:30 → DCLOUNGE 03-07 15:38
PROVIDERS: ADMIT Internal Medicine; ATTEND Internal Medicine
DX: I11.0 Hypertensive heart disease with heart failure (principal); J96.01 Acute respiratory failure with hypoxia; J15.9 Unspecified bacterial pneumonia; J44.1 Chronic obstructive pulmonary disease with (acute) exacerbation; N17.9 Acute kidney failure, unspecified; J44.0 Chronic obstructive pulmonary disease with (acute) lower respiratory infection; I50.23 Acute on chronic systolic (congestive) heart failure; Z20.828 Contact with and (suspected) exposure to other viral communicable diseases; D64.9 Anemia, unspecified; F12.90 Cannabis use, unspecified, uncomplicated; F17.210 Nicotine dependence, cigarettes, uncomplicated; I25.10 Atherosclerotic heart disease of native coronary artery without angina pectoris; Z59.0 Homelessness; Z90.49 Acquired absence of other specified parts of digestive tract
CPT/HCPCS: 36415; 71045; 71275; 80048; 80053; 83605; 83735; 83880; 84100; 84145; 84443; 84484; 85025; 85379; 87040; 87635; 93005; 93306; 94640; 96374; 96375; 99285; G0378; J0456; J0696; J1650; J1885; J7060; Q9967; J2270; J7030; J7050; J7120; J7512

== ENCOUNTER 2020-04-03 20:39 | Emergency (ER) | payer MEDICARE ==
[~2020-04-03] VITALS: Ht 172.7 cm; Wt 68.6 kg
[~2020-04-03 20:39] MED LIST changes: +ASPI81TA45 PO; +CARV3.1212 PO; +FAMO20TA7 PO; +FURO20TA3 PO; +IPRA4AER INH; +LISI-167 PO; +PRED5TAB PO; +SPIR25TA PO
--- NOTE | 2020-04-03 20:48 | NUR ---
ACCOUNTS RECEIVABLE COORDINATOR: EKG DONE IN TRIAGE.
--- NOTE | 2020-04-03 21:44 | NUR ---
pt to room from lobby
[2020-04-03 21:47] LABS: BASOPHILS % (AUTO) 1 % (0-1); EOSINOPHILS % (AUTO) 1 % (1-7); LYMPHOCYTES % (AUTO) 20 % (22-44); MEAN CORPUSCULAR HEMOGLOBIN 30.1 pg (27.5-34.5); MEAN PLATELET VOLUME 6.8 fL (7.4-10.4); MONOCYTES % (AUTO) 9 % (2-9); NEUTROPHILS % (AUTO) 69 % (42-75); PLATELET COUNT 296 x10^3/uL (130-400); RED BLOOD COUNT 3.96 x10^6/uL (4.38-5.82); RED CELL DISTRIBUTION WIDTH 15.5 % (9.4-14.8)
[2020-04-03 21:55] LABS: ALANINE AMINOTRANSFERASE 27 U/L (12-78); ALBUMIN 2.9 g/dL (3.4-5.0); ANION GAP 10 mmol/L (5-15); CALCIUM 8.4 mg/dL (8.5-10.1); CHLORIDE 106 mmol/L (98-107); CREATININE 1.25 mg/dL (0.7-1.3)
[2020-04-03 21:57] LABS: MD NO
[2020-04-03 22:00] LABS: ALKALINE PHOSPHATASE 117 U/L (45-117); BILIRUBIN,TOTAL 0.2 mg/dL (0.2-1.0); TOTAL PROTEIN 6.8 g/dL (6.4-8.2); TROPONIN I 0.033 ng/mL (0.000-0.045)
[2020-04-03] MEDS ORDERED: ACETAMINOPHEN 500 MG TABLET PO ONE (22:00)
[2020-04-03] MEDS ORDERED: FUROSEMIDE 40 MG TABLET PO ONE (22:00)
[2020-04-03] MEDS ORDERED: ACETAMINOPHEN 500 MG TABLET ONE (22:15)
[2020-04-03] MEDS ORDERED: FUROSEMIDE 40 MG TABLET ONE (22:15)
[2020-04-03 22:39] VITALS: BP 148/86
== END 2020-04-03 22:52 | disposition home or self-care (01) ==
LOC: ED 21:50
DX: I11.0 Hypertensive heart disease with heart failure (principal); I50.9 Heart failure, unspecified; R06.00 Dyspnea, unspecified; R07.9 Chest pain, unspecified; R00.0 Tachycardia, unspecified; Z72.9 Problem related to lifestyle, unspecified; F17.210 Nicotine dependence, cigarettes, uncomplicated; I25.2 Old myocardial infarction; Z90.49 Acquired absence of other specified parts of digestive tract
CPT/HCPCS: 36415; 71045; 80053; 83880; 84484; 85025; 93005; 99285; 99406